=== PATIENT | male | born 2000 | race Hispanic/Latino ===

== ENCOUNTER 2022-06-06 18:12 | Inpatient (IN) | payer OTHER ==
[~2022-06-06] VITALS: Ht 172.7 cm; Wt 97.5 kg
[2022-06-06 21:19] LABS: BASOPHILS % (AUTO) 0.4 % (0.0-5.0); EOSINOPHILS % (AUTO) 0.7 % (0.0-8.0); HEMATOCRIT 42.5 % (42-54); MEAN CORPUSCULAR HEMOGLOBIN 28.4 pg (27.0-33.0); MEAN CORPUSCULAR HGB CONC 33.4 g/dL (32.0-36.0); MONOCYTES % (AUTO) 7.4 % (3.0-13.0); NEUTROPHILS % (AUTO) 67.4 % (40.0-77.0); PLATELET COUNT (AUTO) 224 K/uL (130-400); RED CELL DISTRIBUTION WIDTH 12.8 % (11.0-15.5)
[2022-06-06 21:29] LABS: POTASSIUM 3.7 mmol/L (3.5-5.1)
[2022-06-06 21:33] LABS: TOTAL PROTEIN, SERUM 8.1 g/dL (6.0-8.3)
[2022-06-06] MEDS ORDERED: MORPHINE 4 MG SYG IVP ONE (22:00)
[2022-06-06] MEDS ORDERED: 0.9%NACL 1000ML 1,000 ML IV ONE (22:00)
[2022-06-06] MEDS ORDERED: ONDANSETRON 4MG INJ IVP ONE (22:00)
[2022-06-06] MEDS ORDERED: IOHEXOL 350 MG/ML 100ML INFUS..BTL IV ONE (22:06)
[2022-06-06 23:30] LABS: APPEARANCE,URINE CLEAR (CLEAR); BILIRUBIN,URINE NEGATIVE (NEGATIVE); COLOR,URINE LIGHT-YELLOW (YELLOW); GLUCOSE, URINE (UA) NEGATIVE (NEGATIVE); KETONES,URINE NEGATIVE (NEGATIVE); LEUKOCYTE ESTERASE ,URINE NEGATIVE Leu/uL (NEGATIVE); NITRATE,URINE NEGATIVE (NEGATIVE); OCCULT BLOOD,URINE NEGATIVE (NEGATIVE); PROTEIN,URINE 50 mg/dL (NEGATIVE); UROBILINOGEN,URINE 0.2 mg/dL (0.2-1.0)
[2022-06-06] MEDS ORDERED: ZOSYN 3.375GM +NS 50ML IVPB ONE (23:30)
[2022-06-06 23:32] LABS: MUCUS,URINE RARE LPF (None Seen); RBC,URINE 0-1 /HPF (0-1); WBC,URINE 0-1 /HPF (0-1)
[2022-06-07] VITALS (21 sets, daily range): BP systolic 119–135; BP diastolic 59–82
[2022-06-07] MEDS ORDERED: ONDANSETRON 4MG INJ IV PRN
[2022-06-07] MEDS ORDERED: MORPHINE 4 MG SYG IV PRN
[2022-06-07] MEDS ORDERED: ACETAMINOPHEN 650 MG SUPPOSITORY RC PRN
[2022-06-07] MEDS ORDERED: MORPHINE 2 MG SYG IV PRN
[2022-06-07] MEDS: LACTATED RINGERS 1000ML 1,000 ML IV SCH ×3 (00:20→20:32)
[2022-06-07] MEDS: ZOSYN 3.375GM+NS 50ML 50 ML IVPB SCH ×3 (04:23→20:33)
[2022-06-07 06:09] LABS: BASOPHILS % (AUTO) 0.4 % (0.0-5.0); EOSINOPHILS % (AUTO) 0.9 % (0.0-8.0); HEMATOCRIT 37.8 % (42-54); LYMPHOCYTES % (AUTO) 26.1 % (21.0-51.0); MEAN CORPUSCULAR HEMOGLOBIN 28.3 pg (27.0-33.0); MEAN CORPUSCULAR HGB CONC 33.9 g/dL (32.0-36.0); MEAN CORPUSCULAR VOLUME 83.4 fL (80-100); MONOCYTES % (AUTO) 10.1 % (3.0-13.0); NEUTROPHILS % (AUTO) 62.2 % (40.0-77.0); PLATELET COUNT (AUTO) 203 K/uL (130-400); RED BLOOD CELL COUNT(AUTO) 4.53 MIL/uL (4.50-6.20); RED CELL DISTRIBUTION WIDTH 12.7 % (11.0-15.5); WHITE BLOOD COUNT (AUTO) 6.9 K/uL (4.8-10.8)
[2022-06-07 06:35] LABS: CREATININE 0.8 mg/dL (0.5-1.5); MAGNESIUM 1.6 mg/dL (1.80-2.40); PHOSPHORUS 4.2 mg/dL (2.5-4.9); POTASSIUM 3.5 mmol/L (3.5-5.1)
[2022-06-07 06:38] LABS: INR 1.04 (0.85-1.15); PROTHROMBIN TIME 11.3 SEC (9.6-11.6)
[2022-06-07 06:39] LABS: PARTIAL THROMBOPLASTIN TIME 28.1 SEC (26.3-35.5)
[2022-06-07] MEDS ORDERED: MAGNESIUM 2GM PREMIX 50ML 50 ML IV PRN ×3 (07:00→20:30)
[2022-06-07] MEDS: FAMOTIDINE 20MG VIAL IV SCH ×2 (07:39→20:33)
[2022-06-07] MEDS: ENOXAPARIN SODIUM 40 MG/0.4 ML SYRINGE SQ SCH (09:00)
[2022-06-07] MEDS ORDERED: BUPIVACAINE/PF 0.5% 10ML VIAL ONE (15:33)
[2022-06-07] MEDS ORDERED: PROPOFOL 10 MG/ML 20ML VIAL IV ONE (17:14)
[2022-06-07] MEDS ORDERED: ROCURONIUM 10MG/1ML SYR 10 MG/ML ML ONE (17:14)
[2022-06-07] MEDS ORDERED: MIDAZOLAM HCL 1 MG/ML 2ML VIAL ONE (17:14)
[2022-06-07] MEDS ORDERED: FENTANYL CITRATE PF 50 MCG/1 ML 2ML VIAL ONE (17:14)
[2022-06-07] MEDS ORDERED: SUCCINYLCHOLINE CHLORIDE 20 MG/ML 10 ML VIAL ONE (17:14)
[2022-06-07] MEDS ORDERED: NEOSTIGMINE 5MG/5ML SYR IV ONE (18:12)
[2022-06-07] MEDS ORDERED: GLYCOPYRROLATE 1 MG/5 ML SYRINGE ONE (18:12)
[2022-06-07] MEDS ORDERED: MEPERIDINE-PF 25 MG/ML SYG ONE ×2 (18:14→18:38)
[2022-06-07] MEDS ORDERED: POTASSIUM CHLORIDE 20MEQ/100ML 100 ML IV PRN (20:30)
[2022-06-07] MEDS ORDERED: POTASSIUM CHLORIDE 10% ELIXIR 20 MEQ/15 ML UDCUP PO PRN (20:30)
[2022-06-07] MEDS ORDERED: LIDOCAINE HCL-MPF 1% 2ML VIAL IV PRN (20:30)
[2022-06-07] MEDS ORDERED: MAGNESIUM 2GM PREMIX 50ML 50 ML IV SCH (20:30)
[2022-06-08] MEDS: KCL 20 MEQ ERTAB PO PRN ×2 (02:29→04:48)
[2022-06-08 04:00] VITALS: BP 119/73
[2022-06-08 05:36] LABS: BASOPHILS % (AUTO) 0.2 % (0.0-5.0); HEMATOCRIT 38.5 % (42-54); LYMPHOCYTES % (AUTO) 9.7 % (21.0-51.0); MEAN CORPUSCULAR HEMOGLOBIN 28.6 pg (27.0-33.0); MEAN CORPUSCULAR HGB CONC 33.2 g/dL (32.0-36.0); MEAN CORPUSCULAR VOLUME 85.9 fL (80-100); NEUTROPHILS % (AUTO) 84.7 % (40.0-77.0); PLATELET COUNT (AUTO) 209 K/uL (130-400); RED BLOOD CELL COUNT(AUTO) 4.48 MIL/uL (4.50-6.20); RED CELL DISTRIBUTION WIDTH 12.7 % (11.0-15.5); WHITE BLOOD COUNT (AUTO) 15.9 K/uL (4.8-10.8)
[2022-06-08] MEDS: LACTATED RINGERS 1000ML 1,000 ML IV SCH ×2 (06:00→06:30)
[2022-06-08 06:01] LABS: ALBUMIN 3.2 g/dL (3.5-5.0); CREATININE 0.8 mg/dL (0.5-1.5); POTASSIUM 4.1 mmol/L (3.5-5.1)
[2022-06-08] MEDS: ZOSYN 3.375GM+NS 50ML 50 ML IVPB SCH ×2 (06:19→12:55)
[2022-06-08 08:00] VITALS: BP 135/75
[2022-06-08] MEDS: FAMOTIDINE 20MG VIAL IV SCH (08:27)
[2022-06-08] MEDS: ENOXAPARIN SODIUM 40 MG/0.4 ML SYRINGE SQ SCH (08:28)
[2022-06-08 12:00] VITALS: BP 135/77
== END 2022-06-08 16:50 | disposition home or self-care (01) | DRG 343 ==
LOC: EDH 18:12 → EDHIP 18:13 → 3DH 06-07 03:04
PROVIDERS: ADMIT Internal Medicine; ATTEND Internal Medicine
PROC: 0DTJ4ZZ Resection of Appendix, Percutaneous Endoscopic Approach (ICD-10-PCS; principal; 2022-06-07 17:15)
DX: K35.80 Unspecified acute appendicitis (principal); E66.9 Obesity, unspecified; Z20.822 Contact with and (suspected) exposure to COVID-19; Z68.32 Body mass index [BMI] 32.0-32.9, adult
CPT/HCPCS: 36415; 74177; 80048; 80053; 81001; 83690; 83735; 84100; 84145; 85025; 85610; 85730; 86850; 86900; 86901; 87040; 87635; 93005; G0378; J0330; J1650; J2175; J2250; J2270; J2405; J2543; J2704; J2710; J3010; J3475; J3490; J7120; Q9967